=== PATIENT | female | born 1980 | race Caucasian/White ===

== ENCOUNTER 2019-01-09 13:07 | Observation (INO) ==
[2019-01-09 13:37] LABS: Basophils # (auto) 0.02 K/uL (0-0.2); Basophils % (auto) 0.3 %; Eosinophils # (auto) 0.18 K/uL (0-0.5); Eosinophils % (auto) 3.1 %; Hematocrit (blood only) 39.4 % (37-47); Hemoglobin 13.2 g/dL (12.0-16.0); Immature Granulocytes # (auto) 0.01 K/uL (0.00-0.02); Immature Granulocytes % (auto) 0.2 %; Lymphocytes # (auto) 2.13 K/uL (1.2-3.4); Lymphocytes % (auto) 36.4 %; Mean Corpuscular Hgb Conc 33.5 g/dL (32-36); Mean Corpuscular Volume 89.3 fL (80-100); Mean Platelet Volume 12.6 fL (7.4-10.4); Monocytes # (auto) 0.33 K/uL (0.11-0.59); Monocytes % (auto) 5.6 %; Neutrophils # (auto) 3.18 K/uL (1.4-6.5); Neutrophils % (auto) 54.4 %; Platelet Count 155 K/uL (130-400); RDW Coefficient of Variation 13.2 % (11.5-14.5); RDW Standard Deviation 43.2 fL (36.4-46.3); Red Blood Count 4.41 M/uL (4.2-5.4); White Blood Count 5.85 K/uL (4.8-10.8)
[2019-01-09 13:48] LABS: D Dimer 300 ug/L FEU (0-500); Prothrombin Time 10.3 Seconds (9.0-12.0)
--- NOTE | 2019-01-09 13:50 | XRay Report ---
XR chest 1V portable CLINICAL HISTORY: syncope COMPARISON STUDY: No previous studies for comparison. FINDINGS: The cardiac and mediastinal contours are normal. There is no evidence of focal pulmonary co nsolidation. There is no evidence of failure. No pleural effusions are visualized.[ There is an ovoid calcification projected over the left axillary region. This is unlikely to be of acute clinical sign ificance. IMPRESSION: No active disease in the chest. Electronically signed by: Ashok Putnam M.D. 01/09/2019 1:49 PM
[2019-01-09 13:51] LABS: Albumin Level 3.9 gm/dl (3.4-5.0); BUN Creatinine Ratio 17.2 (10-20); Calcium 8.7 mg/dl (8.5-10.1); Est GFR (African American) 136.5; Est GFR (Non-African American) 117.8; Magnesium 2.2 mg/dl (1.8-2.4); Potassium 3.7 mmol/L (3.5-5.1)
[2019-01-09 13:56] LABS: Albumin Globulin Ratio 1.1 (0.9-2); Bilirubin,Total 0.4 mg/dl (0.2-1); Globulin 3.7 gm/dl (2.5-4.0); Total Protein 7.6 gm/dl (6.4-8.2); Troponin I 0.028 ng/ml (0-0.045)
[2019-01-09 14:01] LABS: Pregnancy Test, Serum Negative (Negative)
--- NOTE | 2019-01-09 14:04 | Emergency Department Note ---
History of Present Illness General Chief complaint: Chest Pain Time Seen by Provider: 01/09/19 13:14 History of Present Illness Maximum Pain Intensity: 3 This patient is a 38-year-old female presents to the emergency department via BLS for evaluation of left shoulder pain and chest pain. She has had intermittent left shoulder pain particularly in the mornings for the last 2 weeks. It typically dissipates throughout the day with time. Today, the pain did not dissipate. It also radiated into the center of her chest. She describes the chest pain as a pressure. No exacerbating or alleviating symptoms. She has not taken anything [id number] for her symptoms. She denies any shortness of breath. She did feel slightly lightheaded today at work with this discomfort. She denies any heart palpitations. She reports eating and drinking normally. The patient denies any known history of cardiac disease or blood clots. Home Medications Home Medications Medication Instructions Recorded Confirmed Type sertraline 50 mg PO DAILY 01/09/19 01/09/19 History Allergies Allergy/AdvReac Type Severity Reaction Status Date / Time No Known Allergies Allergy Unverified 01/09/19 13:54 Past Med/Surg History Medical History Morbid obesity with BMI of 50.0-59.9, adult (Chronic) Depression with anxiety (Chronic) Depression Surgical History No significant past surgical history Family History Grandmother (Maternal) Coronary heart disease Stroke Grandmother (Paternal) CHF (congestive heart failure) Brother Hypertension Father Diabetes Hypertension Mother Uterine cancer Social History Preferred Language: Irish Communication Ability: Effective Supervisor Graphite Required: No marital status: Current Living Situation: Spouse Current Living Situation Comment: Mother of 3 year old current occupational status: employed 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 Feels Safe at Home: Yes Safety Concerns: Feels Safe At This Time Smoking Status: Unknown if ever smoked Hx Alcohol Use: No Hx Substance Use: No Review of Systems A total of 10 systems reviewed and were otherwise negative Physical Exam Vital Signs Vital Signs - 24 hr 01/09/19 13:10 01/09/19 14:01 01/09/19 15:58 Temperature 37.2 C Temperature Source Oral Sepsis Recent Fever Within 48 Hours No Sepsis New/Unexplained Change in Mental Status No Sepsis Action Taken by Nursing No Action Required Pulse Rate 75 73 Pulse Rate [Left] 72 Pulse Rate from SpO2 Sensor 69 Respiratory Rate 20 18 16 Respiratory Effort / Characteristics Non-Labored Spontaneous Non-Labored Spontaneous Respiratory Depth Normal Respiratory Pattern Blood Pressure 153/100 H 147/78 H Blood Pressure [Left Arm] Blood Pressure Mean 117 101 Blood Pressure Mean [Left Arm] Blood Pressure Position Lying Blood Pressure Position [Left Arm] Pulse Oximetry 97 98 97 Oxygen Delivery Method Room Air Room Air 01/09/19 16:00 01/09/19 16:30 01/09/19 17:00 Temperature Temperature Source Sepsis Recent Fever Within 48 Hours Sepsis New/Unexplained Change in Mental Status Sepsis Action Taken by Nursing Pulse Rate 78 82 75 Pulse Rate [Left] Pulse Rate from SpO2 Sensor 77 80 76 Respiratory Rate 19 26 H 17 Respiratory Effort / Characteristics Respiratory Depth Respiratory Pattern Blood Pressure 145/81 H 136/77 121/77 Blood Pressure [Left Arm] Blood Pressure Mean 102 96 91 Blood Pressure Mean [Left Arm] Blood Pressure Position Blood Pressure Position [Left Arm] Pulse Oximetry 98 98 98 Oxygen Delivery Method 01/09/19 18:15 01/09/19 20:12 Temperature 36.6 C 36.7 C Temperature Source Oral Oral Sepsis Recent Fever Within 48 Hours Sepsis New/Unexplained Change in Mental Status Sepsis Action Taken by Nursing Pulse Rate Pulse Rate [Left] 75 72 Pulse Rate from SpO2 Sensor Respiratory Rate 16 18 Respiratory Effort / Characteristics Non-Labored Respiratory Depth Normal Respiratory Pattern Regular Blood Pressure Blood Pressure [Left Arm] 151/71 H 113/68 Blood Pressure Mean Blood Pressure Mean [Left Arm] 97 83 Blood Pressure Position Blood Pressure Position [Left Arm] Left Lateral Pulse Oximetry 96 95 Oxygen Delivery Method Room Air Room Air Constitutional WD/WN, vitals as above Morbidly obese Eyes EOM intact bilaterally ENMT external ear and nose normal, oropharynx normal (Oral mucosa dry) Neck trachea midline Respiratory normal respiratory effort, lungs clear to auscultation Cardiovascular RRR, no murmur, no edema No tenderness to palpation over the thorax. Gastrointestinal (Abdomen) normal bowel sounds, soft, nontender, no hepatosplenomegaly Musculoskeletal no cyanosis or clubbing, extremities motor strength 5/5 Skin no rashes, warm and dry Neurologic Alert and oriented x3. No focal motor deficits. Psychiatric Acting appropriately Course Patient was seen and examined Vital signs including blood pressure were reviewed medications list was verified with patient Labs were obtained, and a saline lock was established The patient declined pain medication. An EKG was performed and reviewed. The patient was put on a monitor. 1 L normal saline ordered. Imaging was performed and reviewed Upon reassessment, the patient was still having pain. She was ordered nitroglycerin paste. A repeat EKG and troponin were performed. The case was d iscussed with my supervising physician. The patient was reassessed. We discussed her workup. The pain had improved after nitro. The case was discussed with case management, [facility] kindly agreed to evaluate the patient for possible inpatient management. Consultations [facility] Administered Medications Nitroglycerin (Nitro-Bid 2%) 0.5 inch EXT Q6 SUZETTE Stop: 02/08/19 18:39 Last Admin: 01/09/19 19:28 Dose: 0.5 inch Documented by: [id number] Discontinued Medications Acetaminophen (Tylenol) Confirm Administered Dose 650 mg .ROUTE .STK-MED ONE Stop: 01/09/19 17:22 Last Admin: 01/09/19 17:23 Dose: 650 mg Documented by: [id number] Nitroglycerin (Nitro-Bid 2%) 1 inch EXT NOW STA Stop: 01/09/19 15:07 Last Admin: 01/09/19 15:36 Dose: 1 inch Documented by: [id number] Medical Decision Making Medical Records Attestation: I reviewed the patient's medical records. Laboratory Data Attestation: I reviewed the patient's lab results. Result diagrams: 01/09/19 13:15 01/09/19 13:15 Lab Results 01/09/19 01/09/19 01/09/19 Range/Units 13:15 13:15 13:15 WBC 5.85 (4.8-10.8) K/uL RBC 4.41 (4.2-5.4) M/uL Hgb 13.2 (12.0-16.0) g/dL Hct 39.4 (37-47) % MCV 89.3 (80-100) fL MCH 29.9 (25-34) pg MCHC 33.5 (32-36) g/dL RDW Std Deviation 43.2 (36.4-46.3) fL RDW Coeff of Nestor 13.2 (11.5-14.5) % Plt Count 155 (130-400) K/uL MPV 12.6 H (7.4-10.4) fL Immature Gran % (Auto) 0.2 % Neut % (Auto) 54.4 % Lymph % (Auto) 36.4 % Milam % (Auto) 5.6 % Eos % (Auto) 3.1 % Baso % (Auto) 0.3 % Immature Gran # (Auto) 0.01 (0.00-0.02) K/uL Neut # (Auto) 3.18 (1.4-6.5) K/uL Lymph # (Auto) 2.13 (1.2-3.4) K/uL Milam # (Auto) 0.33 (0.11-0.59) K/uL Eos # (Auto) 0.18 (0-0.5) K/uL Baso # (Auto) 0.02 (0-0.2) K/uL PT 10.3 (9.0-12.0) Seconds INR 1.0 (0.9-1.1) D-Dimer 300 (0-500) ug/L FEU Sodium 139 (136-145) mmol/L Potassium 3.7 (3.5-5.1) mmol/L Chloride 106 (98-107) mmol/L Carbon Dioxide 27 (21-32) mmol/L Anion Gap 6.0 (3-11) BUN 10 (7-18) mg/dl Creatinine 0.58 L (0.6-1.2) mg/dl Est Cr Clr Drug Dosing 220.0 ml/min Est GFR ( Amer) 136.5 Est GFR (Non-Af Amer) 117.8 BUN/Creatinine Ratio 17.2 (10-20) Glucose 96 (70-99) mg/dl Calcium 8.7 (8.5-10.1) mg/dl Magnesium 2.2 (1.8-2.4) mg/dl Total Bilirubin 0.4 (0.2-1) mg/dl AST 21 (15-37) U/L ALT 31 (12-78) U/L Alkaline Phosphatase 92 (45-117) U/L Troponin I 0.028 (0-0.045) ng/ml Total Protein 7.6 (6.4-8.2) gm/dl Albumin 3.9 (3.4-5.0) gm/dl Globulin 3.7 (2.5-4.0) gm/dl Albumin/Globulin Ratio 1.1 (0.9-2) Lipase 81 (73-393) U/L HCG, Qual (Negative) Urine Color Urine Appearance (Clear) Urine pH (4.5-7.5) Ur Specific [place] (1.000-1.030) Urine Protein (Negative) Urine Glucose (UA) (Negative) Urine Ketones (Negative) Urine Blood (Negative) Urine Nitrite (Negative) Urine Bilirubin (Negative) Urine Urobilinogen (Negative) Ur Leukocyte Esterase (Negative) Urine WBC (Auto) (0-5) /hpf Urine RBC (Auto) (0-4) /hpf U Hyaline Cast (Auto) (0-5) /lpf U Epithel Cells (Auto) (0-5) /lpf Urine Bacteria (Auto) (Negative) 01/09/19 01/09/19 01/09/19 Range/Units 13:15 13:55 15:20 WBC (4.8-10.8) K/uL RBC (4.2-5.4) M/uL Hgb (12.0-16.0) g/dL Hct (37-47) % MCV (80-100) fL MCH (25-34) pg MCHC (32-36) g/dL RDW Std Deviation (36.4-46.3) fL RDW Coeff of Nestor (11.5-14.5) % Plt Count (130-400) K/uL MPV (7.4-10.4) fL Immature Gran % (Auto) % Neut % (Auto) % Lymph % (Auto) % Milam % (Auto) % Eos % (Auto) % Baso % (Auto) % Immature Gran # (Auto) (0.00-0.02) K/uL Neut # (Auto) (1.4-6.5) K/uL Lymph # (Auto) (1.2-3.4) K/uL Milam # (Auto) (0.11-0.59) K/uL Eos # (Auto) (0-0.5) K/uL Baso # (Auto) (0-0.2) K/uL PT (9.0-12.0) Seconds INR (0.9-1.1) D-Dimer (0-500) ug/L FEU Sodium (136-145) mmol/L Potassium (3.5-5.1) mmol/L Chloride (98-107) mmol/L Carbon Dioxide (21-32) mmol/L Anion Gap (3-11) BUN (7-18) mg/dl Creatinine (0.6-1.2) mg/dl Est Cr Clr Drug Dosing ml/min Est GFR ( Amer) Est GFR (Non-Af Amer) BUN/Creatinine Ratio (10-20) Glucose (70-99) mg/dl Calcium (8.5-10.1) mg/dl Magnesium (1.8-2.4) mg/dl Total Bilirubin (0.2-1) mg/dl AST (15-37) U/L ALT (12-78) U/L Alkaline Phosphatase (45-117) U/L Troponin I 0.032 (0-0.045) ng/ml Total Protein (6.4-8.2) gm/dl Albumin (3.4-5.0) gm/dl Globulin (2.5-4.0) gm/dl Albumin/Globulin Ratio (0.9-2) Lipase (73-393) U/L HCG, Qual Negative (Negative) Urine Color Yellow Urine Appearance Clear (Clear) Urine pH 7.5 (4.5-7.5) Ur Specific [place] 1.017 (1.000-1.030) Urine Protein Negative (Negative) Urine Glucose (UA) Negative (Negative) Urine Ketones Negative (Negative) Urine Blood Negative (Negative) Urine Nitrite Negative (Negative) Urine Bilirubin Negative (Negative) Urine Urobilinogen Negative (Negative) Ur Leukocyte Esterase 2+ H (Negative) Urine WBC (Auto) 5-10 H (0-5) /hpf Urine RBC (Auto) 0-4 (0-4) /hpf U Hyaline Cast (Auto) 1-5 (0-5) /lpf U Epithel Cells (Auto) >30 H (0-5) /lpf Urine Bacteria (Auto) Negative (Negative) 01/09/19 Range/Units 18:45 WBC (4.8-10.8) K/uL RBC (4.2-5.4) M/uL Hgb (12.0-16.0) g/dL Hct (37-47) % MCV (80-100) fL MCH (25-34) pg MCHC (32-36) g/dL RDW Std Deviation (36.4-46.3) fL RDW Coeff of Nestor (11.5-14.5) % Plt Count (130-400) K/uL MPV (7.4-10.4) fL Immature Gran % (Auto) % Neut % (Auto) % Lymph % (Auto) % Milam % (Auto) % Eos % (Auto) % Baso % (Auto) % Immature Gran # (Auto) (0.00-0.02) K/uL Neut # (Auto) (1.4-6.5) K/uL Lymph # (Auto) (1.2-3.4) K/uL Milam # (Auto) (0.11-0.59) K/uL Eos # (Auto) (0-0.5) K/uL Baso # (Auto) (0-0.2) K/uL PT (9.0-12.0) Seconds INR (0.9-1.1) D-Dimer (0-500) ug/L FEU Sodium (136-145) mmol/L Potassium (3.5-5.1) mmol/L Chloride (98-107) mmol/L Carbon Dioxide (21-32) mmol/L Anion Gap (3-11) BUN (7-18) mg/dl Creatinine (0.6-1.2) mg/dl Est Cr Clr Drug Dosing ml/min Est GFR ( Amer) Est GFR (Non-Af Amer) BUN/Creatinine Ratio (10-20) Glucose (70-99) mg/dl Calcium (8.5-10.1) mg/dl Magnesium (1.8-2.4) mg/dl Total Bilirubin (0.2-1) mg/dl AST (15-37) U/L ALT (12-78) U/L Alkaline Phosphatase (45-117) U/L Troponin I 0.026 (0-0.045) ng/ml Total Protein (6.4-8.2) gm/dl Albumin (3.4-5.0) gm/dl Globulin (2.5-4.0) gm/dl Albumin/Globulin Ratio (0.9-2) Lipase (73-393) U/L HCG, Qual (Negative) Urine Color Urine Appearance (Clear) Urine pH (4.5-7.5) Ur Specific [place] (1.000-1.030) Urine Protein (Negative) Urine Glucose (UA) (Negative) Urine Ketones (Negative) Urine Blood (Negative) Urine Nitrite (Negative) Urine Bilirubin (Negative) Urine Urobilinogen (Negative) Ur Leukocyte Esterase (Negative) Urine WBC (Auto) (0-5) /hpf Urine RBC (Auto) (0-4) /hpf U Hyaline Cast (Auto) (0-5) /lpf U Epithel Cells (Auto) (0-5) /lpf Urine Bacteria (Auto) (Negative) Imaging Data Attestation: I personally reviewed and interpreted this imaging study as follows: Radiologist's Impression: Chest x-ray XR chest 1V portable CLINICAL HISTORY: syncope COMPARISON STUDY: No previous studies for comparison. FINDINGS: The cardiac and mediastinal contours are normal. There is no evidence of focal pulmonary consolidation. There is no evidence of failure. No pleural effusions are visualized.[ There is an ovoid calcification projected over the left axillary region. This is unlikely to be of acute clinical significance. IMPRESSION: No active disease in the chest. Electronically signed by: Ashok Putnam M.D. 01/09/2019 1:49 PM ECG Data Attestation: I personally reviewed and interpreted this ECG as follows: Indication: chest pain Rate (beats per minute): 75 Rhythm: normal sinus Change: no significant change (No change from EKG from earlier today) Blood Pressure Blood Pressure Findings: Elevated blood pressure Blood Pressure Disposition: Referred to patients primary care provider MDM Narrative Differential diagnosis: Pulmonary embolus, musculoskeletal pain Acute myocardial infarction, cardiac arrhythmia, anemia, thyroid abnormality, pneumothorax, pneumonia, bronchitis, pericarditis, electrolyte imbalance This patient is a 38-year-old female who presents to the emergency department via BLS with complaints of chest pain. On exam, she was morbidly obese and hypertensive. I could not reproduce the chest pain. Her workup here reveals a slightly elevated troponin (although it was still within normal limits). The rest of her labs are fairly unremarkable. Chest x-ray was negative. EKG shows normal sinus rhythm with no signs of ischemia or infarction. The patient's troponin was repeated. It was increasing slightly. Her pain improved with nitroglycerin. For these reasons, I felt hospitalist consultation was warranted. They will evaluate the patient for possible inpatient management. The patient was in agreement with this plan. Impression & Plan Chest pain Discharge Plan Visit Data *Final* Discharge Date/Time: 01/09/19 17:51 Chief Complaint: Chest Pain ED Provider: Jhonny Mon ED Midlevel Provider: Marisol Gardiner Discharge Problem: Chest pain Patient Disposition: Admitted As Inpatient Discharge Instructions Interventions: ED Discharge Assessment Last Done: 01/09/19 17:51
[2019-01-09 14:24] LABS: Appearance Urine Clear (Clear); Bacteria Urine Automated Negative (Negative); Bilirubin Urine Negative (Negative); Blood Urine Negative (Negative); Color Urine Yellow; Epithelial Cell Urine Auto >30 /lpf (0-5); Glucose Urine UA Negative (Negative); Ketones Urine Negative (Negative); Leukocyte Esterase Urine 2+ (Negative); Nitrite Urine Negative (Negative); Protein Urine Negative (Negative); RBC Urine Automated 0-4 /hpf (0-4); Specific Gravity Urine 1.017 (1.000-1.030); Urobilinogen Urine Negative (Negative); pH Urine 7.5 (4.5-7.5)
[2019-01-09] MEDS ORDERED: NITROGLYCERIN 2% OINTMENT 30GM TUBE EXT STA (15:06)
--- NOTE | 2019-01-09 17:12 | History & Physical Report ---
Date of Service January 09, 2019 Assessment & Plan (1) Chest pain: This is a 38-year-old white female who has a significant past medical history of depression, anxiety, morbid obesity who recently moved to the area from [place] who presents to [facility] ED secondary to chest pain times 2- 3 weeks. In ED initial troponin 0 0.028, 90-minute repeat 0.032, d-dimer within normal limits, CBC and CMP relatively unremarkable, lipase WNL. Repeat ECG unchanged. CXR unremarkable. Symptoms improved with nitro paste. Feel symptoms less likely cardiac related, but given pt morbidly obese, hypertensive and sx improved with nitro will admit for cardiac work up -admit to med/surg tele -trend trop q6hr -NPO at midnight -exercise stress test/echo in a.m. if troponin remain negative -fasting lipid panel (2) Depression with anxiety: -continue zoloft (3) Morbid obesity with BMI of 50.0-59.9, adult: -encouraged diet and lifestyle modification Disposition: D/C home when able Follow up: PCP upon discharge Patient was seen and examined in collaboration with Dr. Burleson, please see addendum Starting 01/10/19 patient will be followed by Dr. Lujan History of Present Illness Chief Complaint: Chest pain x 2-3 weeks Primary Care Provider: NO PCP This is a 38-year-old white female who has a significant past medical history of depression, anxiety, morbid obesity who recently moved to the area from [place] who presents to [facility] ED secondary to chest pain times 2- 3 weeks. is at bedside. Pain is more localized to left chest wall/shoulder region, begins first thing in the morning mostly in route to work and improves with time. Has occurred off and on for the past 2-3 weeks; however, today was persistent with radiation substernally and into the right chest wall. 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 Discomfort is not exertional. She states nothing improves her symptoms and nothing makes it worse. It is not made worse with deep breathing or certain movements. Did not try anything [id number]. Feels the Nitropaste alleviated her symptoms as chest pain is currently absent. She has never had anything like this in the past. Sx not related to meals. She has had indigestion before, feels different. Complains of R frozen shoulder, "my right shoulder is the bad one not my left." She does elicit to being stressed secondary to work, "I hate my job." She also elicits that although never diagnosed with high blood pressure she does have higher blood pressure readings first thing at providers office but then at end of visit blood pressure improves. She is not on any antihypertensives. She denies any recent illness, fever, chills, sweats, lightheadedness, dizziness, palpitations, shortness of breath at rest, hemoptysis, nausea, vomiting, diarrhea, change in bowel or urinary habits. Her appetite has been normal. Allergies Allergy/AdvReac Type Severity Reaction Status Date / Time No Known Allergies Allergy Unverified 01/09/19 13:54 Home Medications Home Medications Medication Instructions Recorded Confirmed Type sertraline 50 mg PO DAILY 01/09/19 01/09/19 History Past Med/Surg History Medical History Morbid obesity with BMI of 50.0-59.9, adult (Chronic) Depression with anxiety (Chronic) Depression Surgical History No significant past surgical history Family History Grandmother (Maternal) Coronary heart disease Stroke Grandmother (Paternal) CHF (congestive heart failure) Brother Hypertension Father Diabetes Hypertension Mother Uterine cancer Social History Preferred Language: Bengali Communication Ability: Effective marital status: Current Living Situation: Family Current Living Situation Comment: Has 1 adopted child current occupational status: employed 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 Feels Safe at Home: Yes Smoking Status: Former smoker Hx Alcohol Use: No Hx Substance Use: No Review of Systems All systems reviewed & are unremarkable except as noted in HPI & below Physical Exam Vital Signs (Past 24 Hours): Last Vital Signs Temp 37.2 C 01/09/19 13:10 Pulse 78 01/09/19 16:00 Resp 19 01/09/19 16:00 BP 145/81 H 01/09/19 16:00 Pulse Ox 98 01/09/19 16:00 Physical Exam: Gen: WD/WN, Morbid Obesity, F, NAD, sitting up in bed, pleasant, conversing easily Head: Normocephalic, Atraumatic Eyes: Sclera normal, no conjunctival injection, PERRLA, EOMI ENT: Gross hearing intact, normal pharynx, mucous membranes moist Neck: supple, no adenopathy, No JVD, no bruit, Resp: Clear to auscultation b/l, no wheeze, rales, rhonchi. Normal insp/exp effort, no accessory muscle use CV: Regular rate, regular rhythm, no murmur, rub, gallop, or ectopy, sx not reproduced with palpation Abd: +BS x 4, + obese, soft, nontender, nondistended Musculoskeletal: moves extremities active rom x 4, Able to move LUE passively and actively w/o reproduction of sx. strength intact, good food safety auditor strength Extremities: No edema bilaterally but obese lower extremities Skin: warm, moist, no rash, negative turgor, cap refill < 2sec Neuro: Alert and oriented x 3, speech normal, good mood/affect, cran nerve 2-12 intact grossly : deferred Results & Data Laboratory Results Short CBC 01/09/19 Range/Units 13:15 WBC 5.85 (4.8-10.8) K/uL Hgb 13.2 (12.0-16.0) g/dL Hct 39.4 (37-47) % Plt Count 155 (130-400) K/uL BMP 01/09/19 13:15 Sodium 139 Potassium 3.7 Chloride 106 Carbon Dioxide 27 BUN 10 Creatinine 0.58 L Glucose 96 Calcium 8.7 Cardiac Enzymes 01/09/19 01/09/19 Range/Units 13:15 15:20 Troponin I 0.028 0.032 (0-0.045) ng/ml Liver Function 01/09/19 Range/Units 13:15 Total Bilirubin 0.4 (0.2-1) mg/dl AST 21 (15-37) U/L ALT 31 (12-78) U/L Alkaline Phosphatase 92 (45-117) U/L Albumin 3.9 (3.4-5.0) gm/dl Urine 01/09/19 Range/Units 13:55 Urine Color Yellow Urine Appearance Clear (Clear) Urine pH 7.5 (4.5-7.5) Ur Specific [place] 1.017 (1.000-1.030) Urine Protein Negative (Negative) Urine Glucose (UA) Negative (Negative) Diagnostic Findings CXR: IMPRESSION: No active disease in the chest. Medications Administered Discontinued Medications Nitroglycerin (Nitro-Bid 2%) 1 inch EXT NOW STA Stop: 01/09/19 15:07 Last Admin: 01/09/19 15:36 Dose: 1 inch Documented by: [id number] ECG Rate (beats per minute): 75 Rhythm: normal sinus Code Status & VTE Plan Code Status Full Code VTE Prophylaxis Plan VTE Prophylaxis will be ordered: No Reason for no VTE drug order: Treatment not indicated Reason for no VTE mechanical prophylaxis: Treatment not indicated Supervising Physician Co-Signing Physician Notes Attending addendum The patient was seen and examined in emergency room in presence of the She is a 38-year-old white female who has a significant past medical history of depression, anxiety, morbid obesity who recently moved to the area from [place] who presents to [facility] ED secondary to chest pain times 2- 3 weeks. Complains to have chest pain mostly left-sided upper chest in the morning and last for about half an hour without any other significant symptoms Denies any more pain during the examination On examination She is obese No apparent distress at rest Chest clear to auscultate bilaterally. No tenderness over costochondral junctions Heart-S1-S2, regular, no murmur appreciated Abdomen-benign Extremities-negative for any edema Admission labs, EKG and imaging studies reviewed Admitted with chest pain most likely noncardiac Stress echo tomorrow morning Agree with assessment and plan as outlined above by Divine Burleson (1) Chest pain Chest pain type: other chest pain Qualified Code(s): R07.89 - Other chest pain; R07.8 - Other chest pain
[2019-01-09] MEDS ORDERED: ACETAMINOPHEN 325 MG TAB ONE (17:21)
[2019-01-09] MEDS ORDERED: MAGNESIUM HYDROXIDE SUSP 30 ML UDC PO PRN (18:40)
[2019-01-09] MEDS ORDERED: ALUMINUM/MAGNESIUM SUSP 30 ML UDC PO PRN (18:40)
[2019-01-09] MEDS ORDERED: POLYETHYLENE (MIRALAX) 17 GM PACK PO PRN (18:40)
[2019-01-09] MEDS: NITROGLYCERIN 2% OINTMENT 30GM TUBE EXT SCH ×2 (19:28→23:36)
[2019-01-09] MEDS: ACETAMINOPHEN 325 MG TAB PO PRN (23:36)
[2019-01-10] MEDS: ACETAMINOPHEN 325 MG TAB PO PRN ×2 (04:06→07:59)
[2019-01-10] MEDS: NITROGLYCERIN 2% OINTMENT 30GM TUBE EXT SCH ×2 (06:03→13:09)
[2019-01-10 07:01] LABS: BUN Creatinine Ratio 22.8 (10-20); Calcium 8.2 mg/dl (8.5-10.1); Creatinine Clr Calc Pharmacy 239.6 ml/min; Est GFR (African American) 140.6; Est GFR (Non-African American) 121.3
[2019-01-10 07:12] LABS: Hematocrit (blood only) 36.7 % (37-47); Hemoglobin 12.1 g/dL (12.0-16.0); Mean Corpuscular Volume 89.7 fL (80-100); Mean Platelet Volume 12.4 fL (7.4-10.4); Platelet Count 130 K/uL (130-400); Platelet Estimate Decreased (Normal); RDW Coefficient of Variation 13.1 % (11.5-14.5); Red Blood Count 4.09 M/uL (4.2-5.4); White Blood Count 8.17 K/uL (4.8-10.8)
[2019-01-10] MEDS ORDERED: SERTRALINE HCL 50 MG TABLET PO SCH (09:00)
[2019-01-10] MEDS ORDERED: PERFLUTREN LIPID MICROSPHERE (DEFINITY) IV ONE (10:43)
[2019-01-10 11:29] VITALS: TEMP 98.2; O2SAT 95
[2019-01-10] MEDS ORDERED: AMLODIPINE BESYLATE 5 MG TAB PO ONE (11:56)
--- NOTE | 2019-01-10 12:01 | Hospitalist Progress Note ---
Date of Service January 10, 2019 Assessment & Plan (1) Chest pain: Patient is a 38 yr female with H/O depression, anxiety, morbid obesity who presents with chest pain since 2-3 weeks. Atypical Chest Pain: CXR: No active disease in the chest. Troponin X 3: Negative EKG: No signs of acute Ischemia D-dimer within normal limits Lipid panel: Normal HTN could be contributing Stress test: Negative HTN: BP labile Start on amlodipine 2.5 mg daily Lifestyle modifications (2) Depression with anxiety: continue zoloft (3) Morbid obesity with BMI of 50.0-59.9, adult: encouraged diet and lifestyle modification Disposition: D/C home today Subjective Patient is seen and examined at bedside Doing well today Chest pain resolved Denies SOB, dizziness, nausea Offers no other complaints Physical Exam Vital Signs (Past 24 Hours): Last Vital Signs Temp 36.8 C 01/10/19 11:28 Pulse 88 01/10/19 11:28 Resp 18 01/10/19 11:28 BP 145/95 H 01/10/19 11:28 Pulse Ox 95 01/10/19 11:28 Physical Exam: Physical Exam: Vitals signs as noted above General Appearance:Morbidly Obese, no apparent distress Head: normocephalic, Atraumatic Eyes: normal inspection, EOMI Neck: supple, Trachea midline Respiratory/Chest: Normal breath sounds, CTA Cardiovascular: S1, S2, No murmur Abdomen/GI:Soft, Non tender, Bowel sounds present Extremities/Musculoskelatal:normal inspection, no edema Neurologic/Psych:AAOX3, grossly no focal neurological deficits Skin: normal color, warm Results & Data Laboratory Results Short CBC 01/09/19 01/10/19 Range/Units 13:15 06:00 WBC 5.85 8.17 (4.8-10.8) K/uL Hgb 13.2 12.1 (12.0-16.0) g/dL Hct 39.4 36.7 L (37-47) % Plt Count 155 130 (130-400) K/uL BMP 01/09/19 01/10/19 13:15 06:00 Sodium 139 141 Potassium 3.7 4.0 Chloride 106 108 H Carbon Dioxide 27 27 BUN 10 12 Creatinine 0.58 L 0.53 L Glucose 96 101 H Calcium 8.7 8.2 L Cardiac Enzymes 01/09/19 01/09/19 01/09/19 Range/Units 13:15 15:20 18:45 Troponin I 0.028 0.032 0.026 (0-0.045) ng/ml 01/10/19 Range/Units 00:51 Troponin I 0.037 (0-0.045) ng/ml Liver Function 01/09/19 Range/Units 13:15 Total Bilirubin 0.4 (0.2-1) mg/dl AST 21 (15-37) U/L ALT 31 (12-78) U/L Alkaline Phosphatase 92 (45-117) U/L Albumin 3.9 (3.4-5.0) gm/dl Urine 01/09/19 Range/Units 13:55 Urine Color Yellow Urine Appearance Clear (Clear) Urine pH 7.5 (4.5-7.5) Ur Specific [place] 1.017 (1.000-1.030) Urine Protein Negative (Negative) Urine Glucose (UA) Negative (Negative)
--- NOTE | 2019-01-10 12:15 | Discharge Summary ---
Date of Service January 10, 2019 Admission HPI Per Admitting Provider This is a 38-year-old white female who has a significant past medical history of depression, anxiety, morbid obesity who recently moved to the area from [place] who presents to [facility] ED secondary to chest pain times 2- 3 weeks. is at bedside. Pain is more localized to left chest wall/shoulder region, begins first thing in the morning mostly in route to work and improves with time. Has occurred off and on for the past 2-3 weeks; however, today was persistent with radiation substernally and into the right chest wall. 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 Discomfort is not exertional. She states nothing improves her symptoms and nothing makes it worse. It is not made worse with deep breathing or certain movements. Did not try anything [id number]. Feels the Nitropaste alleviated her symptoms as chest pain is currently absent. She has never had anything like this in the past. Sx not related to meals. She has had indigestion before, feels different. Complains of R frozen shoulder, "my right shoulder is the bad one not my left." She does elicit to being stressed secondary to work, "I hate my job." She also elicits that although never diagnosed with high blood pressure she does have higher blood pressure readings first thing at providers office but then at end of visit blood pressure improves. She is not on any antihypertensives. She denies any recent illness, fever, chills, sweats, lightheadedness, dizziness, palpitations, shortness of breath at rest, hemoptysis, nausea, vomiting, diarrhea, change in bowel or urinary habits. Her appetite has been normal. Admission Exam Per Admitting Provider Gen: WD/WN, Morbid Obesity, F, NAD, sitting up in bed, pleasant, conversing easily Head: Normocephalic, Atraumatic Eyes: Sclera normal, no conjunctival injection, PERRLA, EOMI ENT: Gross hearing intact, normal pharynx, mucous membranes moist Neck: supple, no adenopathy, No JVD, no bruit, Resp: Clear to auscultation b/l, no wheeze, rales, rhonchi. Normal insp/exp effort, no accessory muscle use CV: Regular rate, regular rhythm, no murmur, rub, gallop, or ectopy, sx not reproduced with palpation Abd: +BS x 4, + obese, soft, nontender, nondistended Musculoskeletal: moves extremities active rom x 4, Able to move LUE passively and actively w/o reproduction of sx. 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 strength Extremities: No edema bilaterally but obese lower extremities Skin: warm, moist, no rash, negative turgor, cap refill < 2sec Neuro: Alert and oriented x 3, speech normal, good mood/affect, cran nerve 2-12 intact grossly : deferred Principal Diagnosis Discharge Information Discharge Diagnosis Atypical Chest Pain Discharge Goals Decrease discomfort,Improve disease control, Improve function Discharge Activity Limitations Resume your previous activity Discharge Data Allergies Allergy/AdvReac Type Severity Reaction Status Date / Time No Known Allergies Allergy Unverified 01/09/19 13:54 Consultations 01/09/19 16:17 ED Decision to Admit Stat Procedures Performed CXR: No active disease in the chest. Hospital Course (1) Chest pain: Patient is a 38 yr female with H/O depression, anxiety, morbid obesity who presents with chest pain since 2-3 weeks. Atypical Chest Pain: CXR: No active disease in the chest. Troponin X 3: Negative EKG: No signs of acute Ischemia D-dimer within normal limits Lipid panel: Normal HTN could be contributing Stress test: Nonischemic exercise stress ECHO HTN: BP labile Start on amlodipine 2.5 mg daily Lifestyle modifications (2) Depression with anxiety: continue zoloft (3) Morbid obesity with BMI of 50.0-59.9, adult: encouraged diet and lifestyle modification Disposition: D/C home today Total Time Total Time Spent Total Time Spent (In Minutes): 25 minutes Discharge Plan Discharge Items Patient Disposition: Home - Self-Care Reason For Visit: CHEST PAIN Discharge Diagnosis: Atypical Chest Pain Discharge Goals: Decrease discomfort, Improve disease control and Improve function Activity: Resume your previous activity Exercise/Sports: Gradually increase as tolerated Non-emergency contact: Primary Care Provider Call non-emergency contact if: you have any medication questions, your symptoms worsen, your pain is not controlled, your pain is worsening, your pain is unusual for you, your pain is concerning for you and you have a fever Follow-up/Referrals: PCP,NO [Primary Care Provider] - Diet: Heart Healthy Addtl Provider Instructions: Follow up with your Primary Care Physician in 1 week as advised Seek immediate medical attention if your symptoms reoccur or worsen Prescriptions: New amlodipine [Norvasc] 5 mg Tablet 2.5 mg PO QAM 30 Days Qty: 15 RF: 0 Continued sertraline 50 mg tablet 50 mg PO DAILY RF: 0 Stand-Alone Forms: Call Back Authorization, [facility] Discharge Orders: Discharge Order (Routine); Ordered 01/10/19 Ordered By: Aubrey Lujan Admission Data Admit Date/Time: 01/09/19 16:57 Attending Provider: Aubrey Lujan Admit Provider: Yessica Burleson Primary Care Provider: PCP,NO Other Providers: Yessica Burleson Service: Telemetry Medical Other Interventions: Discharge Summary Assessment (RN) Last Done: 01/10/19 14:02 Pending Studies at Discharge: No DC Date/Time DO NOT enter until pt leaves facility: 01/10/19 14:30
[2019-01-10 13:56] VITALS: BP 153/85; PULSE 70
[2019-01-11] MEDS ORDERED: AMLODIPINE BESYLATE 5 MG TAB PO SCH (09:00)
== END 2019-01-10 14:30 | disposition home or self-care (01) ==
LOC: ED 13:07 → 2N 13:07